=== PATIENT | female | born 1950 | race Caucasian/White ===

== ENCOUNTER 2018-05-04 15:06 | Outpatient (CLI) | payer MEDICARE | END 2018-05-04 23:59 | disposition home or self-care (01) | LOC: RAD 15:06 | PROVIDERS: ATTEND Internal Medicine Gastroenterology | DX: R13.14 Dysphagia, pharyngoesophageal phase (principal); K21.9 Gastro-esophageal reflux disease without esophagitis; K44.9 Diaphragmatic hernia without obstruction or gangrene; Z87.891 Personal history of nicotine dependence | CPT/HCPCS: 74230 ==

== ENCOUNTER 2019-11-22 13:31 | Outpatient (CLI) | payer MEDICARE | END 2019-11-22 23:59 | disposition home or self-care (01) | LOC: RAD 13:31 | PROVIDERS: ATTEND Family Medicine | DX: R13.12 Dysphagia, oropharyngeal phase (principal); R49.0 Dysphonia; R47.1 Dysarthria and anarthria | CPT/HCPCS: 74230 ==